=== PATIENT | female | born 1965 | race Native Hawaiian/Other Pacific Islander ===

== ENCOUNTER 2021-10-24 09:49 | Emergency (ER) | payer OTHER ==
[~2021-10-24] VITALS: Ht 165.1 cm; Wt 59.0 kg
[2021-10-24] MEDS ORDERED: ESTROGEL TD (10:06)
[2021-10-24 10:39] LABS: PLATELET COUNT 279 K/uL (152-353)
[2021-10-24 10:52] LABS: POTASSIUM 4.1 mmol/L (3.6-5.2)
[2021-10-24 11:45] VITALS: BP 123/38; TEMP 98.2
== END 2021-10-24 11:46 | disposition home or self-care (01) ==
LOC: ED 09:49
PROVIDERS: Emergency Medicine Emergency Medical Services
DX: R55 Syncope and collapse (principal)
CPT/HCPCS: 80053; 81000; 83735; 84484; 85027; 93005; 96360; 99284